=== PATIENT | female | born 1980 | race Caucasian/White ===

== ENCOUNTER 2024-12-09 19:55 | Emergency (ER) | payer BC, SELFPAY ==
[2024-12-09 20:05] VITALS: BP 107/76
[2024-12-09 20:46] LABS: Hematocrit 36.8 % (37.0-47.0); Hemoglobin 12.8 g/dL (12.0-16.0); Mean Corp Hgb Conc. 34.8 g/dL (33.0-37.0); Mean Corpuscular Volume 83.3 fL (81.0-99.0); Nucleated Red Blood Cells % 0 %; Platelet Count 252 10^3/uL (130-400); Red Cell Dist. Width 13.1 % (11.5-14.5)
[2024-12-09 21:02] LABS: ALT (SGPT) 14 U/L (0-35); AST (SGOT) 20 U/L (14-36); Albumin 4.5 g/dl (3.5-5.0); Alkaline Phosphatase 56 U/L (38-126); Blood Urea Nitrogen 20 mg/dl (7-17); Calcium 9.6 mg/dl (8.4-10.2); Carbon Dioxide 28 mmol/L (22-30); Chloride 106 mmol/L (98-107); Estimated Creatinine Clearance 92 ml/min; Glucose 89 mg/dl (70-99); Potassium 4.0 mmol/L (3.5-5.1); Sodium 140 mmol/L (135-145); Total Protein 7.4 g/dl (6.3-8.2); eGFR > 60.00
[2024-12-09 21:13] LABS: Troponin I < 0.012 ng/ml
[2024-12-09 22:32] VITALS: BMI 23.5
[2024-12-09 22:39] VITALS: BP 97/79
--- NOTE | 2024-12-09 22:58 | ED.GENMED ---
History of Present Illness
General
Chief Complaint: Chest Pain
Source: patient
Exam Limitations: none
Time Seen by Provider: 12/09/24 22:55
Nursing documentation reviewed up to this point in time: agreed with
History of Present Illness
History of Present Illness:
Note:
CHIEF COMPLAINT(S)
Chest pain with radiation to the neck and back.
HISTORY OF PRESENT ILLNESS
The patient is a 44-year-old female with pmh of asthma, cervical spinal fusion. presenting with constant chest pain since this morning, described as radiating to the neck and posteriorly towards the shoulder. She also feels some pain in her jaw as
well. She sees physical therapy for her shoulder pain but notes that the pain is located behind the collarbone and is different from any shoulder pain she has experienced before. She reports intermittent shortness of breath and episodes of
sweating. The pain is not relieved by ibuprofen or acetaminophen. It is described as persistent and does not change significantly with position. She does admit to lifting heavy bags of ice earlier today for a green party however patient reports that she
had no trouble with this and does not recall any pain. She denies any trauma to the area. She denies any numbness or tingling in her arms, any pain or numbness in her face, denies any visual changes. She does not smoke. She has no history of
hypertension. She denies any recent travel, denies swelling or pain in her legs. She denies any use of exogenous estrogen. The patient has a history of cervical fusion but no notable cardiac history. Her father had a myocardial infarction, but he
had significant risk factors, including smoking.
PHYSICAL EXAM
General: Patient is well appearing and in no acute distress; non-toxic
Skin: Warm and dry, no rashes or lesions
Head: Normocephalic, atraumatic
Neck: No tenderness to palpation of the anterior neck, no visible swelling or symmetry. No lymphadenopathy.
Eyes: Sclera non-icteric. EOMs intact.
Cardiac: Regular rate and rhythm, no murmurs
Peripheral Vascular: No longer extremity swelling or edema. 2+ radial pulses bilaterally
Pulm: Normal respiratory effort, no wheezes, rales, rhonchi
Musculoskeletal: No midline spinal tenderness. Left upper trapezius with tenderness to palpation this morning with pain with internal and external rotation of the left shoulder, left paracervical tenderness noted. No palpable bony deformities.
Neuro: CN II-XII intact, no focal neurologic deficits.
Psychiatric: Appropriate mood and affect.
EKG
Normal sinus rhythm rate 65 no ischemic changes
- Initial troponin level: Undetectable.
- Repeat troponin: To be conducted due to persistent symptoms.
Repeat ecg unremarkable
DIFFERENTIAL DIAGNOSIS
The Differential Diagnosis includes, in no particular order and is not limited to:
- Musculoskeletal pain
- Cardiac etiology (e.g., myocardial infarction)
- Pulmonary embolism
- Aortic dissection
- Anxiety or panic attack
SUMMARY OF ENCOUNTER
The patient presented with chest pain and associated symptoms of shortness of breath and diaphoresis. Given the nature of her symptoms, an initial EKG was performed, which was normal, and a troponin level was found to be undetectable. Due to the
persistent nature of her pain, further diagnostic workup was considered, including repeating the troponin and considering imaging studies to rule out possible emergent conditions such as pulmonary embolism or aortic dissection.
PLAN
- Repeat troponin to monitor for any rise in levels.
- Consider CXR to evaluate pulmonary and cardiac structures.
- Consider CT scan to definitively exclude pulmonary embolism or aortic dissection.
- Administer anti-inflammatory medication if initial treatments were ineffective.
FOLLOW-UP INSTRUCTIONS
- The patient will be informed about the results of the tests before leaving the emergency department.
CHART REVIEW
Reviewed ER physician documentation from 09/05/2014 patient seen for chest pain with neck pain, she had unremarkable workup and was discharged
Reviewed external medical summary reviewed February 29, 2024 visit for anxiety consider going on SSRI
Patient has had injections in the epidural space in the neck in the past for spinal stenosis
MEDICAL DECISION MAKING
-Complexity of Data Reviewed: Chronic conditions affecting care [cervical fusion, father with myocardial infarction]
-Data:
Category 1
- EKG interpreted as normal.
- Troponin levels monitored.
- Chest X-ray and consideration of CT scan for further evaluation of potential cardiopulmonary pathology.
-Risk:
Consideration of Admission/Observation: Escalation of care including admission/observation was considered given the complexity and risk of the patients presenting complaint and exam findings. However, ultimately I feel the patient is safe for
outpatient management with close follow-up. Reasoning: Work-up reassuring, does not reveal any acute life/organ-threatening processes, patients symptoms well controlled upon reevaluation, reexamination is reassuring, vitals are stable, patient
agreeable with discharge, reliable for follow-up.
44-year-old female presents the ER today with concerns of left anterior neck pain, and chest pain upon awakening this morning. It has been persistent and did not relieve with Tylenol or Motrin. She also notes intermittent shortness of breath. She
denies any syncopal episodes. She has no associated dizziness or lightheadedness. My physical exam she is well-appearing in no acute distress heart regular rate and rhythm, respirations normal no abnormal breath sounds. She does have tenderness
on the left paracervical region and tenderness to palpation upper trapezius. No palpable bony deformities. Patient has no risk factors for aortic dissection he does not smoke no history of hypertension however considering the persistence of her
symptoms, patient was sent for PE study which was negative for PE negative for dissection. On reevaluation, patient's symptoms seem to improve sporadically without intervention. Patient reports that she still feels the pain but is no longer
constant and comes and goes especially with position changes. Will give dose of Toradol through IV. Patient states that she will follow-up with her physical therapist and talk to her primary care provider. Repeat troponin normal. Repeat EKG
nonischemic. Suspect musculoskeletal etiology. Discussed strict return precautions.
UPDATE
3:23 AM--Discussed CT scan findings with patient. Patient states that the pain is improving and now intermittent without intervention, will give dose of toradol
DIAGNOSIS
- Chest pain, unspecified (ICD-10: R07.9)
- Musculoskeletal pain (ICD-10: M54.9)
Past History
Past History
ED Past Medical History: Asthma
ED Past Surgical History: Gynecological (LEEP procedure), Orthopedic (Cervical fusion October 2017. Left elbow fracture repair) and Tonsilectomy
Social History
Tobacco: Non-smoker
Alcohol: None
Drug: None
Personal:
Living: with family
Employment: Not employed
Family History
Family History: Negative Early CAD
Review of Systems
Review of Systems
All Other Systems: ROS reviewed and negative except as documented in HPI and ROS
Phy Exam
Physical Exam
Physical Exam:
see hpi
Scores
Heart Score for Chest Pain Patients
STEMI patient?: No
History: Slightly or Non-Suspicious
ECG: Normal
Age: >45 - <65 years
Risk Factors: No Risk Factors
Troponin: </= Normal Limit
Heart Score for Chest Pain Patients: 1
Heart Score Risk: 2.5% MACE over next 6 weeks
Course
Orders/Labs/Results
Orders:
Orders
12/09/24 19:58
EKG [Electrocardiogram (*1)] Urgent
Reason for Study: Shortness of Breath
Comment: Jaw/neck pain
12/09/24 19:59
EKG- Treatment ONCE
12/09/24 20:25
Complete Blood Count/With Diff Urgent
Comprehensive Metabolic Panel Urgent
HCG, Serum Qualitative Screen Urgent
Comment: ADDED
NT-proBNP Urgent
Troponin I Urgent
12/09/24 23:24
Electrocardiogram (*1) Urgent
Reason for Study: Chest Pain
12/10/24 00:00
CT Chest PE Study Urgent
Reason For Exam: left sided chest pain, shortness of breath, neck p
12/10/24 00:36
Add On- LAB Urgent
Tests Added?: hcg qual
12/10/24 00:50
Troponin I Urgent
12/10/24 03:01
Ketorolac [Toradol] 15 mg IV NOW STA
Abnormal Lab Results
12/09/24
20:25
Hct 36.8 L %
(37.0-47.0)
BUN 20 H mg/dl
(7-17)
12/09/24 20:25
12/09/24 20:25
Vital Signs
Initial and Last Documented VS:
Initial Vital Signs
Temp Pulse Resp BP Pulse Ox
98.7 F 78 16 107/76 99
12/09/24 20:05 12/09/24 20:05 12/09/24 20:05 12/09/24 20:05 12/09/24 20:05
Last Documented Vital Signs
Temp Pulse Resp BP Pulse Ox
98.7 F 67 16 103/69 98
12/09/24 20:05 12/10/24 01:30 12/10/24 01:30 12/10/24 01:00 12/10/24 01:30
*Pulse Oximetry
SaO2: 97
Oxygen Mode of Delivery: Room air
Patient hypoxic: no
*Critical Care Note
Total Time (30-74mins, 75-104mins- exclusive of procedures): Not Applicable
ED Attending Note
-
Portions of this chart may have been created with voice recognition software.� Occasional wrong word or��sound alike� substitutions may have occurred due to the inherent limitations of voice recognition software.
Discharge Plan
Departure
Patient Disposition: Home (Routine Discharge)
Date of Disposition: 12/10/24
Time of Disposition: 03:26
Patient with high blood pressure during this ER visit?: No
Condition: Good
Discharge Problem:
Chest pain, Neck pain
Instructions: Neck pain, Chest pain (DC), BLOOD PRESSURE
Prescriptions:
No Action
No Current Medications
0
Referrals:
Dinah Spring PA [Family Provider, Family Practice]
Activity Restrictions/Additional Instructions:
You can take Tylenol and ibuprofen as needed for pain. Please follow-up with your physical therapist and your primary care provider.
PLEASE RETURN TO THE ER SHOULD YOU DEVELOP ANY ACUTE WORSENING OF YOUR SYMPTOMS, TROUBLE SWALLOWING, WEAKNESS IN YOUR EXTREMITIES, LIGHTHEADEDNESS, DIZZINESS, OR ANY OTHER SIGNS OR SYMPTOMS WORRISOME TO YOU.
Interventions
Interventions:
*Risk Screen - Suicide Last Done: 12/09/24 20:05
*General Assessment Last Done: 12/09/24 20:05
*Neglect/Abuse Screening Last Done: 12/09/24 20:05
*ED- Fall Risk Assessment Last Done: 12/09/24 22:32
*ED COVID-19 Vaccine History Last Done: 12/09/24 20:05
*Nursing Disposition Last Done: 12/10/24 04:15
ED- Cardiac Assessment Last Done: 12/09/24 22:32
Discharge Date and Time
Discharge Date/Time: 12/10/24 04:16
Print Language: HAITIAN
[2024-12-09 23:00] VITALS: BP 103/74
[2024-12-10] VITALS: BP 103/66
[2024-12-10 01:00] VITALS: BP 103/69
[2024-12-10 01:30] LABS: HCG, Serum Qualitative Screen Negative
[2024-12-10 01:40] LABS: Troponin I 0.013 ng/ml
[2024-12-10] MEDS: TORADOL 15 MG IV (03:16)
== END 2024-12-10 04:16 | disposition home or self-care (01) ==
LOC: EMR 19:55
PROVIDERS: Emergency Medicine; Physician Assistant; EMERGENCY PHYSICIAN Emergency Medicine; FAMILY PHYSICIAN Physician Assistant Medical
DX: R07.89 Other chest pain (principal); J45.909 Unspecified asthma, uncomplicated; F41.9 Anxiety disorder, unspecified; X50.0XXA Overexertion from strenuous movement or load, initial encounter; Y93.89 Activity, other specified; Z82.49 Family history of ischemic heart disease and other diseases of the circulatory system; Z98.1 Arthrodesis status
CPT/HCPCS: 99284; 96374; 71275; 80053; 83880; 84484; 84703; 85025; 93005; Q9967

== ENCOUNTER → 2025-03-12 14:57 | Outpatient (REF) | payer BC, SELFPAY | LOC: RAD 14:57 | PROVIDERS: FAMILY PHYSICIAN Physician Assistant Medical | DX: Z47.89 Encounter for other orthopedic aftercare (principal) | CPT/HCPCS: 73630 ==

== ENCOUNTER → 2025-03-29 07:50 | Outpatient (REF) | payer BC, SELFPAY | LOC: RAD 07:50 | PROVIDERS: ATTENDING PHYSICIAN Podiatrist Foot & Ankle Surgery; FAMILY PHYSICIAN Physician Assistant Medical | DX: Z01.818 Encounter for other preprocedural examination (principal) | CPT/HCPCS: 73630 ==